=== PATIENT | male | born 1980 | race American Indian/Alaskan Native ===

== ENCOUNTER 2020-02-23 17:25 | Emergency (ER) | payer OTHER ==
[2020-02-23 17:32] VITALS: BP 157/92
--- NOTE | 2020-02-23 18:10 | XRay Report ---
RIGHT FINGER RADIOGRAPHS, 3 VIEWS INDICATION / CLINICAL INFORMATION: Injury to the right second finger COMPARISON: None available. FINDINGS: BONES / JOINT(S): Bandage material along the right index finger slightly degrades fine osseous detail . No acute displaced fracture identified. SOFT TISSUES: Soft tissue swelling and irregularity along the tip of the index finger. No radiopaque foreign object identified. ADDITIONAL FINDINGS: None. Signer Name: Esme Cid MD Signed: 02/23/2020 6:06 PM Workstation Name: [id number]
[2020-02-23] MEDS ORDERED: HYDROcodone/ACETAMINOPHEN 5-325 MG TAB PO ONE (19:35)
[2020-02-23] MEDS ORDERED: cephALEXin 500 MG CAP PO ONE (19:35)
[2020-02-23] MEDS ORDERED: DIPHtheria,PERTUSSIS(ACELL),TETANUS VACCINE/PF 0.5 ML VIAL IM ONE (19:35)
--- NOTE | 2020-02-23 20:20 | Emergency Department Report ---
ED Upper Extremity Inj HPI - General Chief Complaint: Extremity Injury, Upper Stated Complaint: RIGHT FINGER CUT Time Seen by Provider: 02/23/20 19:27 Source: patient Mode of arrival: Ambulatory Limitations: No Limitations - History of Present Illness Initial Comments: Patient 39-year-old male who presents for right distal index finger skin avulsion. Patient states he was moving concrete blocks and wheelbarrow and concrete fell pinching his finger between the concrete and concrete driveway. Patient states initial bleeding was controlled by direct pressure, complains of 5/10 pain, pain is improved by splinting. Bleeding is controlled at this time. Last tetanus shot unknown. Patient is right-handed. There is no obvious deformity range of motion remains intact. There is no numbness or paralysis. MD Complaint: Injury to:: right, finger Handedness: right Place: home Severity scale (0 -10): 5 Improves With: other (splinting ) Worsens With: movement of extremity, other (palpation) Context: crush - Related Data Previous Rx's Medication Instructions Recorded Last Taken Type HYDROcodone/APAP 5-325 [[place] 1 each PO Q6HR PRN #12 tablet 02/23/20 Unknown Rx 5-325 mg TAB] Neomycin/Bacitracin/Polymyxinb 1 applicatio TP BID 7 Days #1 tube 02/23/20 Unknown Rx [Triple Antibiotic Ointment] cephALEXin [Keflex] 500 mg PO Q8HR 7 Days #21 cap 02/23/20 Unknown Rx Allergies Allergy/AdvReac Type Severity Reaction Status Date / Time No Known Allergies Allergy Unverified 02/23/20 17:29 ED Review of Systems ROS: Stated complaint: RIGHT FINGER CUT Other details as noted in HPI Constitutional: denies: chills, fever Eyes: denies: eye pain, eye discharge, vision change ENT: denies: ear pain, throat pain Respiratory: denies: cough, shortness of breath, wheezing Cardiovascular: denies: chest pain, palpitations Endocrine: no symptoms reported Gastrointestinal: denies: abdominal pain, nausea, diarrhea Genitourinary: denies: urgency, dysuria Musculoskeletal: other (finger pad avulsion) Skin: other (as above ). denies: rash, lesions Neurological: as per HPI Psychiatric: denies: anxiety, depression Hematological/Lymphatic: denies: easy bleeding, easy bruising ED Past Medical Hx - Past Medical History Previous Medical History?: Yes Hx Hypertension: Yes - Surgical History Past Surgical History?: No - Medications Home Medications: Home Medications Medication Instructions Recorded Confirmed Last Taken Type HYDROcodone/APAP 5-325 [[place] 1 each PO Q6HR PRN #12 tablet 02/23/20 Unknown Rx 5-325 mg TAB] Neomycin/Bacitracin/Polymyxinb 1 applicatio TP BID 7 Days #1 tube 02/23/20 Unknown Rx [Triple Antibiotic Ointment] cephALEXin [Keflex] 500 mg PO Q8HR 7 Days #21 cap 02/23/20 Unknown Rx ED Physical Exam - General Limitations: No Limitations General appearance: alert, in no apparent distress - Head Head exam: Present: atraumatic, normocephalic - Eye Eye exam: Present: normal appearance, PERRL, EOMI Pupils: Present: normal accommodation - ENT ENT exam: Present: mucous membranes moist - Neck Neck exam: Present: normal inspection, full ROM. Absent: tenderness - Respiratory Respiratory exam: Present: normal lung sounds bilaterally. Absent: respiratory distress, wheezes, stridor, chest wall tenderness - Cardiovascular Cardiovascular Exam: Present: regular rate, normal rhythm, normal heart sounds. Absent: systolic murmur, diastolic murmur, rubs, gallop - GI/Abdominal GI/Abdominal exam: Present: soft, normal bowel sounds. Absent: distended, tenderness - Rectal Rectal exam: Present: deferred - Extremities Exam Extremities exam: Present: full ROM, tenderness (right finger tip ), normal capillary refill - Expanded Upper Extremity Exam Right Hand Wrist exam: Present: full ROM, tenderness, laceration (pad avulsion). Absent: swelling, ecchymosis, deformity, crepidus, dislocation, erythema, nail avulsion, subungual hematoma Neuro motor exam: Present: wrist extension intact, thumb opposition intact, thumb IP flexion intact, thumb adduction intact, fingers 2-5 abduction intact Neurosensory exam: Present: radial nerve intact Vascular: Present: normal capillary refill. Absent: pulse deficit radial art - Back Exam Back exam: Present: normal inspection, full ROM. Absent: tenderness, vertebral tenderness - Neurological Exam Neurological exam: Present: alert, oriented X3, CN II-XII intact, normal gait, reflexes normal. Absent: motor sensory deficit - Expanded Neurological Exam Expanded Patient oriented to: Present: person, place, time Speech: Present: fluid speech Sensory exam: Upper Extremity Light Touch: Normal, Upper Extremity Pin Prick: Normal, Upper Extremity Temperature: Normal Motor strength exam: RUE: 5, LUE: 5 DTR: bicep (R): 2+, bicep (L): 2+ Best Eye Response ([place]): (4) open spontaneously Best Motor Response ([place]): (6) obeys commands Best Verbal Response ([place]): (5) oriented [place] Total: 15 - Psychiatric Psychiatric exam: Present: normal affect, normal mood - Skin Skin exam: Present: warm, dry, normal color, other (right finger pad avulsion ). Absent: rash ED Course Vital Signs 02/23/20 17:29 Temperature 98.4 F Pulse Rate 87 Respiratory 18 Rate Blood Pressure 157/92 [Left] O2 Sat by Pulse 97 Oximetry - Procedure Description Procedures done: Right palmar index finger pad avulsion all bleeders controlled range of motion is no bony protrusion no foreign bodies. 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 pt tolerated procedure with minimal distress, all bleeding is controlled, pt verbalized understanding of same. ED Medical Decision Making - Radiology Data Radiology results: report reviewed, image reviewed Findings Reporting MD: Esme Cid Dictation Time: February 23, 2020 17:06 Finishing Machine Tender: Not available Edge Stitcher Date: RIGHT FINGER RADIOGRAPHS, 3 VIEWS INDICATION / CLINICAL INFORMATION: Injury to the right second finger COMPARISON: None available. FINDINGS: BONES / JOINT(S): Bandage material along the right index finger slightly degrades fine osseous detail. No acute displaced fracture identified. SOFT TISSUES: Soft tissue swelling and irregularity along the tip of the index finger. No radiopaque foreign object identified. ADDITIONAL FINDINGS: None. Signer Name: Esme Cid MD Signed: 02/23/2020 5:06 PM Workstation Name: [id number] - Medical Decision Making X-ray demonstrates distal tuft fracture. Right pad avulsion sterile Betadine and dressing applied, patient given wound care instructions, and verbalized understanding of same. Patient will follow-up with hand surgery in 1 to 2 days. Range of motion remains intact, there is no nerve tendon or muscle damage. Sterile dressing is intact all bleeding is controlled at this time. Patient did receive tetanus, hydrocodone, and first dose of Keflex in ed. Critical care attestation.: If time is entered above; I have spent that time in minutes in the direct care of this critically ill patient, excluding procedure time. ED Disposition Clinical Impression: Open fracture of tuft of distal phalanx of finger Avulsion of finger tip Qualifiers: Encounter type: initial encounter Qualified Code(s): S61.209A - Unspecified open wound of unspecified finger without damage to nail, initial encounter Disposition: TO HOME OR SELFCARE Is pt being admited?: No Does the pt Need Aspirin: No Condition: Stable Instructions: Skin Avulsion (ED), Finger Fracture (ED) Prescriptions: cephALEXin [Keflex] 500 mg PO Q8HR 7 Days #21 cap HYDROcodone/APAP 5-325 [[place] 5-325 mg TAB] 1 each PO Q6HR PRN #12 tablet PRN Reason: Pain Neomycin/Bacitracin/Polymyxinb [Triple Antibiotic Ointment] 1 applicatio TP BID 7 Days #1 tube Referrals: JOSÉ LUIS CORTES MD [Staff Physician] - ANA Forms: Work/School Release Form(ED) Time of Disposition: 20:31
== END 2020-02-23 20:40 | disposition home or self-care (01) ==
LOC: ED 17:25
DX: S62.630A Displaced fracture of distal phalanx of right index finger, initial encounter for closed fracture (principal); S61.209A Unspecified open wound of unspecified finger without damage to nail, initial encounter; I10 Essential (primary) hypertension; W20.8XXA Other cause of strike by thrown, projected or falling object, initial encounter; Y93.89 Activity, other specified; Y92.89 Other specified places as the place of occurrence of the external cause; Y99.8 Other external cause status
CPT/HCPCS: 90471; 90715; 99283